=== PATIENT | female | born 1960 ===

== ENCOUNTER → 2017-08-21 | Outpatient (CLI) | payer OTHER | END | disposition home or self-care (01) | LOC: RAD 06:08 | DX: M25.552 Pain in left hip (principal); M25.551 Pain in right hip; M54.5 Low back pain; G63 Polyneuropathy in diseases classified elsewhere; I10 Essential (primary) hypertension; R73.01 Impaired fasting glucose ==

== ENCOUNTER → 2017-12-27 06:14 | Outpatient (CLI) | payer OTHER | END | disposition home or self-care (01) | LOC: LAB 06:14 | DX: Z11.3 Encounter for screening for infections with a predominantly sexual mode of transmission (principal) ==

== ENCOUNTER 2018-08-13 15:50 | Outpatient (CLI) | payer OTHER | END 2018-08-13 15:57 | disposition home or self-care (01) | LOC: RAD 15:50 | DX: M25.562 Pain in left knee (principal); M25.561 Pain in right knee ==